=== PATIENT | female | born 1990 | race Hispanic/Latino ===

== ENCOUNTER 2022-06-23 19:53 | Emergency (ER) | payer OTHER ==
[~2022-06-23] VITALS: Ht 172.7 cm; Wt 69.9 kg
[2022-06-23] MEDS ORDERED: IBUPROFEN 600 MG TAB ONE (20:42)
[2022-06-23] MEDS ORDERED: IBUPROFEN 600 MG TAB PO STA (20:54)
== END 2022-06-23 22:22 | disposition home or self-care (01) ==
LOC: FSED 20:20
DX: R50.9 Fever, unspecified (principal); J10.1 Influenza due to other identified influenza virus with other respiratory manifestations; B34.9 Viral infection, unspecified
CPT/HCPCS: 83518; 87400; 99283

== ENCOUNTER 2022-08-07 13:47 | Emergency (ER) | payer OTHER ==
[~2022-08-07] VITALS: Ht 152.4 cm; Wt 68.0 kg
[2022-08-07 14:05] VITALS: O2SAT 99
[2022-08-07] MEDS ORDERED: ACETAMINOPHEN 325 MG TAB ONE (14:14)
[2022-08-07] MEDS ORDERED: AMOXICILLIN500 MG PO (14:19)
[2022-08-07] MEDS ORDERED: ACETAMINOPHEN 325 MG TAB PO ONE (14:30)
[2022-08-07 14:53] VITALS: PULSE 114; RESP 20; TEMP 100.1
== END 2022-08-07 14:54 | disposition home or self-care (01) ==
LOC: FSED 13:50
DX: R50.9 Fever, unspecified (principal); J02.0 Streptococcal pharyngitis
CPT/HCPCS: 83518; 87400; 99283